=== PATIENT | female | born 1985 | race Caucasian/White ===

== ENCOUNTER 2017-04-01 22:21 | Emergency (ER) | payer BC, OTHER ==
[~2017-04-01] VITALS: Ht 165.1 cm; Wt 50.9 kg
[~2017-04-01 22:21] MED LIST: IBUP600T44 PO; PRENTAB26 PO
[2017-04-01 22:22] VITALS: Ht 165.1 cm; Wt 50.9 kg
[2017-04-01] MEDS ORDERED: SODIUM CHLORIDE 0.9% 500ML 500 ML IV STA (22:35)
--- NOTE | 2017-04-01 22:40 | EMERGENCY ROOM VISIT NOTE ---
History Report prepared by Scribe: Cinthya Rousseau Under the Supervision of: Dr. Shawn Mcrae M.D. First contact with patient: 22:26 Chief Complaint: CARDIAC ASSESSMENT Stated Complaint: PALPITATIONS,SYNCOPE History of Present Illness The patient is a 31 year old female who presents to the Emergency Room with complaints of needing a cardiac assessment. She reports she was driving home from a hockey game earlier this evening when she started to experience heart palpitations and weakness, stating she felt like she was "about to pass out". She also reports she felt like her heart was beating out of her chest during the episode. She states she feels a little better here in the ED, but still feels "shakey". She denies any loss of consciousness or drinking any alcohol today. She admits she didn't eat dinner this evening but states she is not hungry at the moment. She denies any abdominal pain. The patient admits to a history of tachycardia and GERD. She did take her daily dose of Propranolol this morning. Her Concrete Foreman is located in [place], [place]. She reports she recently underwent an echocardiogram that was unremarkable. The patient admits to some recent cold symptoms. She admits there is a chance she is . Her LMP was 3 weeks ago and normal. Source of History: patient Onset: CAR [employer]ARN [employer]OR[employer] Position: chest Timing: resolved Associated Symptoms: + weakness, No LOC, No abdominal pain Review of Systems See HPI for pertinent positives & negatives. A total of 10 systems reviewed and were otherwise negative. Past Medical & Surgical Medical Problems: (1) Delivery normal (2) GERD (gastroesophageal reflux disease) (3) Tachycardia Social History Smoking Status: Never Smoker Alcohol Use: occasionally Drug Use: none Marital Status: Housing Status: lives with family Occupation Status: employed Current/Historical Medications Scheduled Dicyclomine Hcl (Bentyl), 10 MG PO PRN Omeprazole (Prilosec), 40 MG PO DAILY Propranolol La (Inderal La), 120 MG PO DAILY Allergies Coded Allergies: No Known Allergies (Unverified , NONE, 06/06/08) Physical Exam Vital Signs Date Time Temp Pulse Resp B/P (MAP) Pulse Ox O2 Delivery O2 Flow Rate FiO2 04/01/17 23:57 80 20 117/60 94 Room Air 04/01/17 23:03 36.7 69 20 98/54 99 Room Air 04/01/17 22:53 100 Room Air 04/01/17 22:39 80 04/01/17 22:30 100 Room Air 04/01/17 22:22 79 22 124/65 99 Room Air Physical Exam GENERAL: Patient is a healthy-appearing well-nourished 31 year old female HEAD: Normocephalic atraumatic EYES: Ocular movements intact pupils equal and react to light OROPHARYNX mucous membranes are moist no exudates present no erythema or edema present NECK: Supple no nuchal rigidity CHEST: Good equal expansion LUNGS: Clear and equal to auscultation CARDIAC: Normal S1 and S2 ABDOMEN: Soft nontender no guarding BACK: No CVA tenderness EXTREMITIES: No pain upon palpation normal muscle strength in all groups no clubbing cyanosis or edema NEURO: Patient is following commands and answering questions appropriately. Alert and oriented x3 Cranial Nerves 2-12 grossly intact Medical Decision & Procedures ER Provider Diagnostic Interpretation: Radiology results as stated below per my review and radiologist interpretation: CHEST ONE VIEW PORTABLE CLINICAL HISTORY: Chest pain. Palpitations. COMPARISON STUDY: Chest radiograph June 06, 2008. FINDINGS: Lung volumes are normal. No pneumothorax or pleural effusion is present. Cardiomediastinal silhouette is normal. Pulmonary vascularity is normal. Slight asymmetric right lower lung opacity is likely artifactual. There is no definite consolidation. IMPRESSION: Slight asymmetric right lower lung opacity. Artifact is favored however pneumonia could appear similar. Electronically signed by: Coy Martinez M.D. 04/01/2017 10:59 PM Laboratory Results 04/01/17 22:40 Red Blood Count 3.99, Mean Corpuscular Volume 93.2, Mean Corpuscular Hemoglobin 32.1, Mean Corpuscular Hemoglobin Concent 34.4, Mean Platelet Volume 9.2, Neutrophils (%) (Auto) 56.5, Lymphocytes (%) (Auto) 33.7, Monocytes (%) (Auto) 5.7, Eosinophils (%) (Auto) 3.6, Basophils (%) (Auto) 0.4, Neutrophils # (Auto) 4.25, Lymphocytes # (Auto) 2.54, Monocytes # (Auto) 0.43, Eosinophils # (Auto) 0.27, Basophils # (Auto) 0.03 04/01/17 22:40 Test 04/01/17 22:40 White Blood Count 7.53 K/uL (4.8-10.8) Red Blood Count 3.99 M/uL (4.2-5.4) Hemoglobin 12.8 g/dL (12.0-16.0) Hematocrit 37.2 % (37-47) Mean Corpuscular Volume 93.2 fL (80-100) Mean Corpuscular Hemoglobin 32.1 pg (25-34) Mean Corpuscular Hemoglobin Concent 34.4 g/dl (32-36) Platelet Count 257 K/uL (130-400) Mean Platelet Volume 9.2 fL (7.4-10.4) Neutrophils (%) (Auto) 56.5 % Lymphocytes (%) (Auto) 33.7 % Monocytes (%) (Auto) 5.7 % Eosinophils (%) (Auto) 3.6 % Basophils (%) (Auto) 0.4 % Neutrophils # (Auto) 4.25 K/uL (1.4-6.5) Lymphocytes # (Auto) 2.54 K/uL (1.2-3.4) Monocytes # (Auto) 0.43 K/uL (0.11-0.59) Eosinophils # (Auto) 0.27 K/uL (0-0.5) Basophils # (Auto) 0.03 K/uL (0-0.2) RDW Standard Deviation 41.6 fL (36.4-46.3) RDW Coefficient of Variation 12.3 % (11.5-14.5) Immature Granulocyte % (Auto) 0.1 % Immature Granulocyte # (Auto) 0.01 K/uL (0.00-0.02) Anion Gap 7.0 mmol/L (3-11) Est Creatinine Clear Calc Drug Dose 98.3 ml/min Estimated GFR () 135.5 Estimated GFR (Non- 116.9 BUN/Creatinine Ratio 17.8 (10-20) Calcium Level 8.4 mg/dl (8.5-10.1) Total Bilirubin 0.5 mg/dl (0.2-1) Direct Bilirubin 0.1 mg/dl (0-0.2) Aspartate Amino Transf (AST/SGOT) 22 U/L (15-37) Alanine Aminotransferase (ALT/SGPT) 23 U/L (12-78) Alkaline Phosphatase 71 U/L (45-117) Total Creatine Kinase 79 U/L (26-192) Creatine Kinase MB 0.7 ng/ml (0.5-3.6) Creatine Kinase MB Ratio 0.9 (0-3.0) Troponin I < 0.015 ng/ml (0-0.045) Total Protein 8.1 gm/dl (6.4-8.2) Albumin 3.8 gm/dl (3.4-5.0) Lipase 156 U/L (73-393) Thyroid Stimulating Hormone (TSH) 5.410 uIu/ml (0.300-4.500) Human Chorionic Gonadotropin, Qual POS (NEG) Human Chorionic Gonadotropin, Quant 12 mIU/mL Labs reviewed by ED physician. Medications Administered Medications (Trade) Dose Ordered Sig/Inocencia Route Start Time Stop Time Status Last Admin Dose Admin Sodium Chloride 500 ml @ 999 mls/hr Q31M STAT IV 04/01/17 22:35 04/01/17 23:05 DC 04/01/17 23:01 999 MLS/HR ECG Indication: palpitations Rate (beats per minute): 80 Rhythm: normal sinus Findings: no acute ischemic change, no ectopy ED Course 2227: Past medical records reviewed. The patient was evaluated in room B10 . A complete history and physical examination was performed. 2235: NSS 500 ml @ 999 mls/hr IV. 2345: I reevaluated the patient. She is feeling well and resting comfortably. I discussed her results and discharge instructions and she verbalized complete understanding and agreement. Medical Decision Prior records/ancillary studies reviewed. Triage Nursing notes reviewed. The patient's history was concerning for chest pain. Differential diagnosis: Etiologies such as cardiac ischemia, aortic dissection, pulmonary embolism, pneumonia, pneumothorax, musculoskeletal, infections, pericarditis, myocarditis , esophageal rupture, gastrointestinal, as well as others were entertained. This is a 31-year-old female who presents emergency department complaining of palpitations and then a vasovagal episode. The patient has had multiple episodes like this in the past. I believe several things preceded this event including the fact that the patient did not eat well today. In addition she was in a warm hockey rink and walked out into a cold night. At this point the patient is asymptomatic. Her test here is positive however the beta hCG was found to only Be 12. I stressed a follow-up with her primary care physician as well as cardiology. The patient has a normal EKG here and was monitored for some time on the patient monitor. She was given normal saline bolus. She has a normal CK-MB troponin. In addition the patient is slightly anemic with hemoglobin 12.8. Medication Reconcilliation Current Medication List: was personally reviewed by me Blood Pressure Screening Patient's blood pressure: Normal blood pressure Blood pressure disposition: Did not require urgent referral Impression Primary Impression: Vasovagal episode Additional Impressions: Palpitations Scribe Attestation The scribe's documentation has been prepared under my direction and personally reviewed by me in its entirety. I confirm that the note above accurately reflects all work, treatment, procedures, and medical decision making performed by me. Departure Information Dispostion Home / Self-Care Referrals Promise Parker M.D. (PCP) Patient Instructions ED Palpitations, ED Syncope Vasovagal, My [facility] Additional Instructions Follow up with Cardiology Stop Prilosec, start zantac Recommend Multi-Vitamin with Folic acid You have been examined and treated today on an emergency basis only. This is not a substitute for, or an effort to provide, complete comprehensive medical care. It is impossible to recognize and treat all injuries or illnesses in a single emergency department visit. It is therefore important that you follow up closely with Dr Parker. Call as soon as possible for an appointment. Thank you for your time and consideration. I look forward to speaking with you again soon. Please don't hesitate to call us if you have any questions. Problem Qualifiers Additional Impressions: Weeks of gestation: less than 8 weeks Qualified Codes: Z3A.01 - Less than 8 weeks gestation of
[2017-04-01 22:53] VITALS: O2SAT 100
[2017-04-01 22:53] LABS: BASO % 0.4 %; BASO ABS # 0.03 K/uL (0-0.2); EOS % 3.6 %; EOS ABS # 0.27 K/uL (0-0.5); HEMATOCRIT 37.2 % (37-47); HEMOGLOBIN 12.8 g/dL (12.0-16.0); IG# 0.01 K/uL (0.00-0.02); LYMPH % 33.7 %; LYMPH ABS # 2.54 K/uL (1.2-3.4); MEAN CELL VOLUME 93.2 fL (80-100); MEAN CORPUSCULAR HEMOGLOBIN 32.1 pg (25-34); MEAN CORPUSCULAR HGB CONC 34.4 g/dl (32-36); MEAN PLATELET VOLUME 9.2 fL (7.4-10.4); MONO % 5.7 %; MONO ABS # 0.43 K/uL (0.11-0.59); NEUT % 56.5 %; NEUT ABS # 4.25 K/uL (1.4-6.5); PLATELET COUNT 257 K/uL (130-400); RED CELL DISTRIBUTION WIDTH CV 12.3 % (11.5-14.5); RED CELL DISTRIBUTION WIDTH SD 41.6 fL (36.4-46.3); WHITE BLOOD COUNT 7.53 K/uL (4.8-10.8)
[2017-04-01] MEDS ORDERED: INDSR/120 PO (23:00)
[2017-04-01] MEDS ORDERED: DICY10CA55 PO (23:00)
[2017-04-01] MEDS ORDERED: OMEP40CA41 PO (23:00)
--- NOTE | 2017-04-01 23:00 | DIAGNOSTIC IMAGING REPORT ---
CHEST ONE VIEW PORTABLE CLINICAL HISTORY: Chest pain. Palpitations. COMPARISON STUDY: Chest radiograph June 06, 2008. FINDINGS: Lung volumes are normal. No pneumothorax or pleural effusion is present. Cardiomediastinal silhouette is normal. Pulmonary vascularity is normal. Slight asymmetric right lower lung opacity is likely artifactual. There is no definite consolidation. IMPRESSION: Slight asymmetric right lower lung opacity. Artifact is favored however pneumonia could appear similar. Electronically signed by: Coy Martinez M.D. 04/01/2017 10:59 PM Dictated Date/Time: 04/01/2017 10:58 PM
[2017-04-01 23:03] VITALS: TEMP 36.7
[2017-04-01 23:14] LABS: ALBUMIN 3.8 gm/dl (3.4-5.0); ALT/SGPT 23 U/L (12-78); BLOOD UREA NITROGEN 12 mg/dl (7-18); CALCIUM 8.4 mg/dl (8.5-10.1); CARBON DIOXIDE 25 mmol/L (21-32); CREATININE 0.66 mg/dl (0.60-1.20); GLUCOSE 108 mg/dl (70-99); LIPASE 156 U/L (73-393); POTASSIUM 3.9 mmol/L (3.5-5.1); SODIUM 137 mmol/L (136-145)
[2017-04-01 23:27] LABS: ALKALINE PHOSPHATASE 71 U/L (45-117); AST/SGOT 22 U/L (15-37); CKMB 0.7 ng/ml (0.5-3.6); TOTAL PROTEIN 8.1 gm/dl (6.4-8.2)
[2017-04-01 23:57] VITALS: BP 117/60; PULSE 80; O2SAT 94
== END 2017-04-02 00:03 | disposition home or self-care (01) ==
LOC: C.EDB 22:22
DX: R55 Syncope and collapse (principal); R00.2 Palpitations; Z33.1 Pregnant state, incidental; Z3A.01 Less than 8 weeks gestation of pregnancy; K21.9 Gastro-esophageal reflux disease without esophagitis; Z79.899 Other long term (current) drug therapy

== ENCOUNTER 2017-04-11 18:49 | Observation (INO) | payer OTHER ==
[~2017-04-11] VITALS: Ht 165.1 cm; Wt 50.3 kg
[~2017-04-11 18:49] MED LIST changes: +DICY10CA55 PO; -IBUP600T44 PO; +INDSR/120 PO; +OMEP40CA41 PO; -PRENTAB26 PO
[2017-04-11] MEDS ORDERED: MoRPHine SULFATE 4 MG/ML 1 ML CARP\\VIAL IV STA ×2 (19:22→21:15)
[2017-04-11] MEDS ORDERED: SODIUM CHLORIDE 0.9% 1000ML 1,000 ML IV STA (19:22)
[2017-04-11] MEDS ORDERED: ONDANSETRON INJ 2 MG/ML 2 ML VIAL IV STA (19:22)
[2017-04-11 19:37] LABS: BASO % 0.2 %; BASO ABS # 0.02 K/uL (0-0.2); EOS % 1.2 %; EOS ABS # 0.11 K/uL (0-0.5); HEMATOCRIT 33.9 % (37-47); HEMOGLOBIN 11.6 g/dL (12.0-16.0); IG# 0.01 K/uL (0.00-0.02); LYMPH % 17.6 %; LYMPH ABS # 1.63 K/uL (1.2-3.4); MEAN CELL VOLUME 92.6 fL (80-100); MEAN CORPUSCULAR HEMOGLOBIN 31.7 pg (25-34); MEAN CORPUSCULAR HGB CONC 34.2 g/dl (32-36); MEAN PLATELET VOLUME 9.1 fL (7.4-10.4); MONO % 4.1 %; MONO ABS # 0.38 K/uL (0.11-0.59); NEUT % 76.8 %; NEUT ABS # 7.12 K/uL (1.4-6.5); PLATELET COUNT 234 K/uL (130-400); RED CELL DISTRIBUTION WIDTH CV 12.5 % (11.5-14.5); RED CELL DISTRIBUTION WIDTH SD 42.3 fL (36.4-46.3); WHITE BLOOD COUNT 9.27 K/uL (4.8-10.8)
[2017-04-11 19:48] LABS: PTT PATIENT 24.9 SECONDS (21.0-31.0)
[2017-04-11] MEDS ORDERED: PRENTAB26 PO (19:59)
[2017-04-11 20:02] LABS: ALBUMIN 4.1 gm/dl (3.4-5.0); CALCIUM 8.6 mg/dl (8.5-10.1); CREATININE 0.55 mg/dl (0.60-1.20); POTASSIUM 3.3 mmol/L (3.5-5.1)
[2017-04-11 20:05] LABS: TOTAL PROTEIN 7.7 gm/dl (6.4-8.2)
--- NOTE | 2017-04-11 20:50 | DIAGNOSTIC IMAGING REPORT ---
EXAMINATION: RENAL ULTRASOUND CLINICAL HISTORY: LEFT FLANK PAIN COMPARISON STUDY: CT scan performed December 2014 FINDINGS: The right kidney measures 11 cm. The left kidney measures 10.6 cm. There is no evidence of hydronephrosis. There are no renal masses. The bladder was well-distended. Neither ureteral jet was visualized. IMPRESSION : No renal masses identified. No evidence of hydronephrosis. Electronically signed by: Florencio Alvarez M.D. 04/11/2017 8:48 PM Dictated Date/Time: 04/11/2017 8:47 PM
--- NOTE | 2017-04-11 20:55 | DIAGNOSTIC IMAGING REPORT ---
ECTOPIC ULTRASOUND (transabdominal and endovaginal scanning) CLINICAL HISTORY: . Left lower quadrant abdominal pain COMPARISON STUDY: No previous studies for comparison. FINDINGS: The patient was scanned in both the transabdominal and endovaginal fashion. The uterus measured 7.9 x 3.7 x 5.4 cm. 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 No intrauterine gestational sac was visualized. The right ovary was nonvisualized. The left ovary measured 29 x 13 x 18 mm. There is a 14 mm exophytic nodule, likely representing a complex cyst. There is a small amount of free pelvic fluid. IMPRESSION: 1. No intrauterine gestation sac was visualized. 2. Diagnostic considerations therefore include: normal early intrauterine gestation, ectopic , or spontaneous . 3. Correlation with follow-up ultrasonography and serial quantitative beta hCGs is recommended. Electronically signed by: Florencio Alvarez M.D. 04/11/2017 8:54 PM Dictated Date/Time: 04/11/2017 8:50 PM
[2017-04-11] MEDS: LACTATED RINGER'S 1000ML 1,000 ML IV SCH (22:30)
--- NOTE | 2017-04-11 22:31 | EMERGENCY ROOM VISIT NOTE ---
ED Visit Note First contact with patient: 19:06 CHIEF COMPLAINT: Pelvic and left lower quadrant/back pain since this afternoon HISTORY OF PRESENT ILLNESS: Patient is a roughly 5 weeks 31-year -old white female with last normal menstrual period 03/06/2017, who presents the emergency department for evaluation of pelvic pain. Patient reports she is set up to have her first SITE PLANNER visit with Vamsi tomorrow. The patient reports that she found out she was here in the emergency department a couple of weeks ago after she had a vasovagal episode. A serum test performed at that time was positive, Quant was only 12. Patient relates that she has been feeling well and was in her otherwise usual state of health until yesterday. She noted some very minor pelvic cramping yesterday but states that it was tolerable. She states that her symptoms markedly worsened today around 11:30 in the afternoon. She reported progressively worsening pelvic pressure, which then turned into pain. It was originally suprapubic, and very low in the pelvis, slightly towards the left, and has now begun to radiate to the left low back. 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 She reports feeling nauseous and having the chills, she does report the symptoms, with increased waves of pain. She delivered temperature when she got home from work and reports it was 99.6F. She did take some Tylenol and tried to lay down to see if this would help with her symptoms, but it did not. She denies any vaginal bleeding or spotting, no leakage of fluid. Her 2 prior pregnancies were unremarkable other than a delivery. She rates her pain a 9/10. She does have a history of kidney stones, and states that this feels slightly similar, the pelvic pain she is experiencing is unlike her prior kidney stones. REVIEW OF SYSTEMS: Review of systems as per HPI. All other systems reviewed were negative. 10 systems reviewed. PMH: Electronic medical records are reviewed and summarized as above/below. See Problem List. SOCIAL HISTORY: Patient lives at home with her and children. Employed. Nonsmoker. PHYSICAL EXAM: Vital Signs: Reviewed Nurse's notes. CONSTITUTIONAL: Patient is a tearful, uncomfortable appearing 31-year-old white female who is awake and alert and in moderate distress due to her stated complaint. NECK: No bruits auscultated. Supple without lymphadenopathy. No thyromegaly. No meningeal signs. Full active range of motion without discomfort. CARDIOVASCULAR: Regular rate and rhythm, with normal S1 and S2, no murmur or gallop or rub is heard. No carotid bruits auscultated. No JVD. Peripheral pulses easily palpable. RESPIRATORY: Breath sounds equal and clear to auscultation without wheezes, rales, or rhonchi heard. Full and equal chest expansion without accessory muscle use or retractions. ABDOMEN: Bowel sounds are present. Well-healed surgical scars are noted. Abdomen is soft, scaphoid, mildly tender to percussion and palpation in the suprapubic and left lower quadrant, without guarding, rebound or rigidity. There is no pain in the right lower quadrant over McBurney's point. INTEGUMENTARY: No lesions or rash, normal skin turgor. LYMPH: No lymphadenopathy. EMERGENCY DEPARTMENT COURSE: The patient was seen and assessed as above. Her old records are reviewed. Her blood type is confirmed in the EMR as a positive. IV lock was initiated. Laboratory studies were collected including CBC with differential, coags, CMP and quantitative hCG. Urine dip had noted trace occult blood, therefore in addition to pelvic ultrasound, retroperitoneal ultrasound was also ordered. After discussing risks, benefits and alternatives with the patient, she reported being in very significant discomfort, and did desire something for pain. She was given morphine 4 mg and Zofran 4 mg IV. Laboratory studies noted a normal white count at 9200, patient is anemic, H&H is 11.6 and 33.9. Platelets and coags are normal. Potassium 3.3, otherwise electrolytes are normal. Renal function is within normal limits. LFTs are not elevated. HCG is 1386. Urine microscopy notes trace ketones only. Patient's renal ultrasound was unremarkable. There is no evidence for hydronephrosis, no renal masses. No shadowing calculi. Ureteral jets were not identified. Pelvic ultrasound noted a bicornuate uterus. No intrauterine gestational sac was visualized. The right ovary was not visualized due to overlying bowel. Left ovary was visualized and measured 29 x 13 x 18 mm with a 14 mm exophytic nodule likely representing a complex fixed. There was a small amount of free pelvic fluid. Differentials considered included normal early intrauterine gestation, ectopic or spontaneous . All laboratory and diagnostic imaging studies were reviewed with the patient and her . She had increased pain after she returned from ultrasound and was given additional morphine 4 mg IV. I was able to discuss the patient with Vamsi Norman SITE PLANNER application security developer, who was in house, and came to the emergency department to assess the patient. After his evaluation of the patient, he has elected to admit/observe her in the hospital for pain management on further care and evaluation. Differential diagnoses entertained include early intrauterine , ectopic , spontaneous versus threatened AB, septic , ovarian cyst, ovarian torsion, constipation, shingles, renal colic, UTI, pyelonephritis , musculoskeletal pain, amongst others. Medication reconciliation: I attest that I have personally reviewed the patient' s current medication list. Blood pressure screening : Patient was found to have normal blood pressure on screening and does not require follow-up. Problem List Medical Problems: (1) Delivery normal Status: Resolved (2) GERD (gastroesophageal reflux disease) Status: Chronic (3) Palpitations Status: Resolved (4) Status: Resolved (5) Tachycardia Status: Chronic (6) Vasovagal episode Status: Resolved Surgical Problems: (1) History of section Status: Resolved (2) History of cholecystectomy Status: Resolved (3) History of tonsillectomy Status: Resolved Current/Historical Medications Scheduled Multivit/Min/Iron/Fol Ac/Pren ( Vitamin), 2 TAB PO DAILY Allergies Coded Allergies: No Known Allergies (Unverified , NONE, 06/06/08) Vital Signs Date Time Temp Pulse Resp B/P (MAP) Pulse Ox O2 Delivery O2 Flow Rate FiO2 04/11/17 21:07 102 16 118/78 99 Room Air 04/11/17 18:54 36.8 110 16 115/76 99 Room Air Laboratory Results 04/11/17 19:13 Red Blood Count 3.66, Mean Corpuscular Volume 92.6, Mean Corpuscular Hemoglobin 31.7, Mean Corpuscular Hemoglobin Concent 34.2, Mean Platelet Volume 9.1, Neutrophils (%) (Auto) 76.8, Lymphocytes (%) (Auto) 17.6, Monocytes (%) (Auto) 4.1, Eosinophils (%) (Auto) 1.2, Basophils (%) (Auto) 0.2, Neutrophils # (Auto) 7.12, Lymphocytes # (Auto) 1.63, Monocytes # (Auto) 0.38, Eosinophils # (Auto) 0.11, Basophils # (Auto) 0.02 04/11/17 19:13 Test 04/11/17 19:13 04/11/17 19:40 White Blood Count 9.27 K/uL (4.8-10.8) Red Blood Count 3.66 M/uL (4.2-5.4) Hemoglobin 11.6 g/dL (12.0-16.0) Hematocrit 33.9 % (37-47) Mean Corpuscular Volume 92.6 fL (80-100) Mean Corpuscular Hemoglobin 31.7 pg (25-34) Mean Corpuscular Hemoglobin Concent 34.2 g/dl (32-36) Platelet Count 234 K/uL (130-400) Mean Platelet Volume 9.1 fL (7.4-10.4) Neutrophils (%) (Auto) 76.8 % Lymphocytes (%) (Auto) 17.6 % Monocytes (%) (Auto) 4.1 % Eosinophils (%) (Auto) 1.2 % Basophils (%) (Auto) 0.2 % Neutrophils # (Auto) 7.12 K/uL (1.4-6.5) Lymphocytes # (Auto) 1.63 K/uL (1.2-3.4) Monocytes # (Auto) 0.38 K/uL (0.11-0.59) Eosinophils # (Auto) 0.11 K/uL (0-0.5) Basophils # (Auto) 0.02 K/uL (0-0.2) RDW Standard Deviation 42.3 fL (36.4-46.3) RDW Coefficient of Variation 12.5 % (11.5-14.5) Immature Granulocyte % (Auto) 0.1 % Immature Granulocyte # (Auto) 0.01 K/uL (0.00-0.02) Prothrombin Time 10.3 SECONDS (9.0-12.0) Prothromb Time International Ratio 1.0 (0.9-1.1) Activated Partial Thromboplast Time 24.9 SECONDS (21.0-31.0) Partial Thromboplastin Ratio 1.0 Anion Gap 6.0 mmol/L (3-11) Est Creatinine Clear Calc Drug Dose 116.6 ml/min Estimated GFR () 143.8 Estimated GFR (Non- 124.1 BUN/Creatinine Ratio 17.6 (10-20) Calcium Level 8.6 mg/dl (8.5-10.1) Total Bilirubin 0.4 mg/dl (0.2-1) Aspartate Amino Transf (AST/SGOT) 14 U/L (15-37) Alanine Aminotransferase (ALT/SGPT) 23 U/L (12-78) Alkaline Phosphatase 70 U/L (45-117) Total Protein 7.7 gm/dl (6.4-8.2) Albumin 4.1 gm/dl (3.4-5.0) Globulin 3.6 gm/dl (2.5-4.0) Albumin/Globulin Ratio 1.1 (0.9-2) Human Chorionic Gonadotropin, Quant 1386 mIU/mL Urine Color YELLOW Urine Appearance CLEAR (CLEAR) Urine pH 5.0 (4.5-7.5) Urine Specific [place] 1.026 (1.000-1.030) Urine Protein NEG (NEG) Urine Glucose (UA) NEG (NEG) Urine Ketones TRACE (NEG) Urine Occult Blood NEG (NEG) Urine Nitrite NEG (NEG) Urine Bilirubin NEG (NEG) Urine Urobilinogen NEG (NEG) Urine Leukocyte Esterase NEG (NEG) Medications Administered Medications (Trade) Dose Ordered Sig/Inocencia Route Start Time Stop Time Status Last Admin Dose Admin Sodium Chloride 1,000 ml @ 999 mls/hr Q1H1M STAT IV 04/11/17 19:22 04/11/17 20:22 DC 04/11/17 19:37 999 MLS/HR Morphine Sulfate (MoRPHine SULFATE INJ) 4 mg NOW STAT IV 04/11/17 19:22 04/11/17 19:28 DC 04/11/17 19:37 4 MG Ondansetron HCl (Zofran Inj) 4 mg NOW STAT IV 04/11/17 19:22 04/11/17 19:28 DC 04/11/17 19:36 4 MG Morphine Sulfate (MoRPHine SULFATE INJ) 4 mg NOW STAT IV 04/11/17 21:15 04/11/17 21:16 DC 04/11/17 21:33 4 MG Departure Information Impression Primary Impression: Pelvic pain affecting in first trimester, antepartum Dispostion Admitted as an inpatient Referrals Promise Parker M.D. (PCP) Patient Instructions My [facility]
[2017-04-12] MEDS ORDERED: HYDROmorphone INJ 1 MG/ML SYR IV PRN
[2017-04-12] MEDS ORDERED: OXYCODONE/ACETAMINOPHEN 5-325 TAB PO PRN
[2017-04-12 00:05] VITALS: BP 104/65; PULSE 85; TEMP 36.8; O2SAT 100; Ht 165.1 cm; Wt 50.3 kg
[2017-04-12] MEDS ORDERED: IV FLUIDS COMPLETED PRN ×2 (00:30→00:45)
[2017-04-12 04:00] VITALS: BP 96/61; PULSE 90; TEMP 36.8; O2SAT 97
[2017-04-12 06:43] LABS: BASO % 0.3 %; BASO ABS # 0.02 K/uL (0-0.2); EOS % 1.8 %; EOS ABS # 0.11 K/uL (0-0.5); HEMATOCRIT 28.4 % (37-47); HEMOGLOBIN 9.8 g/dL (12.0-16.0); IG# 0.01 K/uL (0.00-0.02); LYMPH % 33.7 %; LYMPH ABS # 2.01 K/uL (1.2-3.4); MEAN CELL VOLUME 92.2 fL (80-100); MEAN CORPUSCULAR HEMOGLOBIN 31.8 pg (25-34); MEAN CORPUSCULAR HGB CONC 34.5 g/dl (32-36); MEAN PLATELET VOLUME 8.8 fL (7.4-10.4); MONO % 6.5 %; MONO ABS # 0.39 K/uL (0.11-0.59); NEUT % 57.5 %; NEUT ABS # 3.42 K/uL (1.4-6.5); PLATELET COUNT 176 K/uL (130-400); RED CELL DISTRIBUTION WIDTH CV 12.6 % (11.5-14.5); RED CELL DISTRIBUTION WIDTH SD 42.4 fL (36.4-46.3); WHITE BLOOD COUNT 5.96 K/uL (4.8-10.8)
[2017-04-12] MEDS: LACTATED RINGER'S 1000ML 1,000 ML IV SCH (07:44)
[2017-04-12 07:45] VITALS: BP 99/65; PULSE 86; TEMP 37.1; O2SAT 99
--- NOTE | 2017-04-12 08:11 | HISTORY & PHYSICAL EXAMINATION ---
DATE OF ADMISSION: 04/11/2017 The patient is a 31-year-old G3, P2, who is 5 weeks . The patient is scheduled for her new OB appointment at [facility] tomorrow, 04/12/2017. Her last menstrual period was 03/06/____. She had done quantitative hCG at the beginning of the , that was 12. She has been doing well until today at 11:30 this morning when she began to experience some pelvic pain. Pain got worse and was radiating down her left pelvis to the left leg. 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 She took some Tylenol. Pain continued to get worse. She does have a history of kidney stones and thought this pain was from kidney stones. She presented to the Emergency Room today where she was seen and evaluated. Renal scan is unremarkable. Pelvic ultrasound showed no IUP. There is, however, left ovary that measures 29 x 13 x 18 mm. There is a 14 mm exophytic nodule which likely represents a complex cyst. There is small amount of fluid in the pelvis. The patient also has a bicornuate uterus and beta hCG is in the 1300s. The patient continues to rank her pain 9/10. She has received several narcotics in the ER and continues to have pain. REVIEW OF SYSTEMS: Negative except as dictated in the HPI. PAST MEDICAL HISTORY: History of tachycardia, the patient was on propranolol prior to . She was told by her jacquard fixer to stop the propranolol once she found out she was . PAST SURGICAL HISTORY: History of section. SOCIAL HISTORY: The patient is , lives with her spouse and children. Denies tobacco, drug or alcohol use. PHYSICAL EXAMINATION: VITAL SIGNS: Temperature 36.8, pulse 102, respirations 16, blood pressure 118/78. HEART: S1, S2, regular rhythm and rate. LUNGS: Clear to auscultation bilaterally. ABDOMEN: There is no guarding, no rebound. Positive bowel sounds. There is slight tenderness in the left lower abdomen. PELVIC: No blood in the vaginal vault. Cervix appears grossly normal. There is fullness in the left adnexa. Uterus appears grossly normal, about 7-week size uterus. EXTREMITIES: No cyanosis, clubbing or edema. ASSESSMENT AND PLAN: 1. . HCG is 1300. 2. Left lower pelvic pain. Ultrasound shows no intrauterine . Left cyst is seen. There is fluid in the pelvis. There is obviously concern for ectopic . I have discussed the above finding with the patient, the patient is a nurse, and we have discussed the options including expected management and repeat hCG in 48 hours since her initial hCG is only 1300. The patient's pain is quite significant. Decision, therefore, was made to admit the patient for pain control and observation. The patient understands that at this point we could either do expected management and repeat hCG titer or do diagnostic laparoscopy. She is interested in keeping the and does not at this moment want any surgical intervention or treatment of her as an ectopic since we do not have a definitive diagnosis at this point. We have agreed, therefore, on keeping this patient overnight and controlling her pain and follow her with labs. Indeed this is an ectopic . Her hemoglobin and CBC are stable. The patient has agreed to observation and serial hCG and H&H followup.
[2017-04-12] MEDS ORDERED: NURSING VERBAL MED ORDER ONE (09:00)
[2017-04-12] MEDS ORDERED: IBUPROFEN 600 MG TAB PO SCH (09:00)
--- NOTE | 2017-04-12 09:14 | Discharge Instructions ---
Discharge Instructions Date of Service Apr 12, 2017. 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 Instructions / Follow-Up Instructions / Follow-Up ACTIVITY RECOMMENDATIONS: See Labor Sheet. SPECIAL CARE INSTRUCTIONS: Call Doctor if: * Severe abdominal pain. * Bleeding * Fever >100.4 degrees F * Pain not relieved by routine measures or pain medication ordered. FOLLOW UP VISIT: Follow-up Visit with:[facility] [place] When:Tuesday04/13/2017 Current Hospital Diet Patient's current hospital diet: Regular Diet Discharge Diet Recommended Diet: Regular Diet Pending Studies Studies pending at discharge: no Medical Emergencies . Who to Call and When: Medical Emergencies: If at any time you feel your situation is an emergency, please call 911 immediately. . Non-Emergent Contact Non-Emergency issues call your: Material Expeditor . . "Provider Documentation" section prepared by Alan Cabrera. . VTE Core Measure Inpt VTE Proph given/why not?: Treatment not indicated
--- NOTE | 2017-04-12 09:19 | Progress Note ---
Progress Note Date of Service Apr 12, 2017. Progress Note Patient seen this morning. Received sign out from Dr. Wilhelm. Patient states she is doing much better this morning. Not needing anything for pain at this time. Discussed plan to have her seen at the office tomorrow for a repeat HCG and doc visit. Ectopic precautions given. Will call with any concerns. D/c today.
[2017-04-12] MEDS ORDERED: IBUPROFEN 600 MG TAB PO PRN (09:30)
[2017-04-12 10:00] VITALS: BP 99/65; PULSE 86; TEMP 37.1; O2SAT 99
== END 2017-04-12 10:58 | disposition home or self-care (01) ==
LOC: C.EDB 18:52 → C.MS4N 22:30 → ENRESERV 22:46
PROVIDERS: ADMIT Obstetrics & Gynecology; ATTEND Obstetrics & Gynecology
DX: O26.891 Other specified pregnancy related conditions, first trimester (principal); R10.2 Pelvic and perineal pain; O99.411 Diseases of the circulatory system complicating pregnancy, first trimester; R00.0 Tachycardia, unspecified; Z3A.01 Less than 8 weeks gestation of pregnancy

== ENCOUNTER 2017-04-15 15:09 | Emergency (ER) | payer OTHER ==
[~2017-04-15] VITALS: Ht 165.1 cm; Wt 50.2 kg
[2017-04-15 15:16] VITALS: Ht 165.1 cm; Wt 50.2 kg
--- NOTE | 2017-04-15 15:37 | EMERGENCY ROOM VISIT NOTE ---
History Report prepared by Ijeoma: Linwood Renteria Under the Supervision of: Dr. Aquilino Quan M.D. First contact with patient: 15:20 Chief Complaint: OTHER COMPLAINT Stated Complaint: STAT HCQ METHOTREXATE SHOT SENT BY [facility] A History of Present Illness The patient is a 31 year old female who presents to the Emergency Room for evaluation of ectopic . Patient currently 5.5 wks by dates. She has concern for ectopic given US at OB today revealing 3.5x2.5 cm adnexal mass separate from Ovary. Has had several positive HCGs. Sent over from OB clinic for evaluation of ectopic . Notes initially pain quite severe 2 days ago which has resolved. Denies much other than just some slight lower left pelvic discomfort. Denies fevers, chills, nausea, vomiting, rashes, vaginal bleeding/discharge, leg swelling, nor other symptoms. No history of ectopic. No medications taken for this. First with vaginal deliver, second was . Source of History: patient Onset: 3 days ago Position: abdomen Timing: constant Associated Symptoms: No fevers, No vomiting, No rash Note: Patient denies lower extremity swelling. Review of Systems See HPI for pertinent positives & negatives. A total of 10 systems reviewed and were otherwise negative. 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 (3) GERD (gastroesophageal reflux disease) (4) Palpitations (5) (6) (7) Tachycardia (8) Vasovagal episode Surgical Problems: (1) History of section (2) History of cholecystectomy (3) History of tonsillectomy Social History Smoking Status: Never Smoker Alcohol Use: occasionally Drug Use: none Marital Status: Housing Status: lives with family Occupation Status: employed Current/Historical Medications Scheduled Multivit/Min/Iron/Fol Ac/Pren ( Vitamin), 2 TAB PO DAILY Allergies Coded Allergies: No Known Allergies (Unverified , NONE, 06/06/08) Physical Exam Vital Signs Date Time Temp Pulse Resp B/P (MAP) Pulse Ox O2 Delivery O2 Flow Rate FiO2 04/15/17 17:52 36.9 87 20 103/71 100 04/15/17 17:43 87 20 103/71 100 Room Air 04/15/17 15:16 36.9 102 20 112/79 99 Room Air Physical Exam GENERAL: Patient is well appearing and in no acute distress. HEENT: No acute trauma, normocephalic atraumatic, mucous membranes moist, no nasal congestion, no scleral icterus. NECK: No stridor, no adenopathy, no meningismus, trachea is midline. LUNGS: No dyspnea. Clear to auscultation and equal bilaterally. No wheeze, no rhonchi. HEART: Regular rate and rhythm. No murmurs, rubs, gallops appreciated. ABDOMEN: Soft, nontender, bowel sounds positive, no masses appreciated, no peritonitis. PELVIS: Mild left lower pelvis tenderness to palpation. BACK: No midline tenderness, no CVA tenderness EXTREMITIES: Normal motion all extremities, no cyanosis, no edema. NEUROLOGIC: Alert and oriented, no acute motor or sensory deficits, no focal weakness, cranial nerves grossly intact. SKIN: No rash, no jaundice, no diaphoresis. Medical Decision & Procedures Laboratory Results 04/15/17 15:40 Red Blood Count 3.51, Mean Corpuscular Volume 93.4, Mean Corpuscular Hemoglobin 32.5, Mean Corpuscular Hemoglobin Concent 34.8, Mean Platelet Volume 9.3, Neutrophils (%) (Auto) 63.8, Lymphocytes (%) (Auto) 25.4, Monocytes (%) (Auto) 7.3, Eosinophils (%) (Auto) 2.6, Basophils (%) (Auto) 0.7, Neutrophils # (Auto) 3.91, Lymphocytes # (Auto) 1.56, Monocytes # (Auto) 0.45, Eosinophils # (Auto) 0.16, Basophils # (Auto) 0.04 04/15/17 15:40 Test 04/15/17 15:40 White Blood Count 6.13 K/uL (4.8-10.8) Red Blood Count 3.51 M/uL (4.2-5.4) Hemoglobin 11.4 g/dL (12.0-16.0) Hematocrit 32.8 % (37-47) Mean Corpuscular Volume 93.4 fL (80-100) Mean Corpuscular Hemoglobin 32.5 pg (25-34) Mean Corpuscular Hemoglobin Concent 34.8 g/dl (32-36) Platelet Count 240 K/uL (130-400) Mean Platelet Volume 9.3 fL (7.4-10.4) Neutrophils (%) (Auto) 63.8 % Lymphocytes (%) (Auto) 25.4 % Monocytes (%) (Auto) 7.3 % Eosinophils (%) (Auto) 2.6 % Basophils (%) (Auto) 0.7 % Neutrophils # (Auto) 3.91 K/uL (1.4-6.5) Lymphocytes # (Auto) 1.56 K/uL (1.2-3.4) Monocytes # (Auto) 0.45 K/uL (0.11-0.59) Eosinophils # (Auto) 0.16 K/uL (0-0.5) Basophils # (Auto) 0.04 K/uL (0-0.2) RDW Standard Deviation 42.8 fL (36.4-46.3) RDW Coefficient of Variation 12.7 % (11.5-14.5) Immature Granulocyte % (Auto) 0.2 % Immature Granulocyte # (Auto) 0.01 K/uL (0.00-0.02) Anion Gap 8.0 mmol/L (3-11) Est Creatinine Clear Calc Drug Dose 108.5 ml/min Estimated GFR () 140.6 Estimated GFR (Non- 121.3 BUN/Creatinine Ratio 10.8 (10-20) Calcium Level 8.8 mg/dl (8.5-10.1) Total Bilirubin 0.4 mg/dl (0.2-1) Aspartate Amino Transf (AST/SGOT) 17 U/L (15-37) Alanine Aminotransferase (ALT/SGPT) 22 U/L (12-78) Alkaline Phosphatase 68 U/L (45-117) Total Protein 7.6 gm/dl (6.4-8.2) Albumin 3.8 gm/dl (3.4-5.0) Globulin 3.8 gm/dl (2.5-4.0) Albumin/Globulin Ratio 1.0 (0.9-2) Human Chorionic Gonadotropin, Quant 193 mIU/mL Laboratory results as reviewed by me. Medications Administered Medications (Trade) Dose Ordered Sig/Inocencia Route Start Time Stop Time Status Last Admin Dose Admin Potassium Chloride (Klor-Con M10) 20 meq STK-MED ONCE .ROUTE 04/15/17 17:47 04/15/17 17:48 DC 04/15/17 17:49 20 MEQ ED Course 1525: The patient was evaluated in room B10. A complete history and physical exam was performed. 1533: I spoke with Dr. Toledo and he will call back once labs are returned. 1547: I checked on the patient and she is comfortable. 1647: I discussed the patient's labs with Dr. Toledo. 1650: I spoke with Dr. Toledo and requested he touch base with the patient. 1657: I checked on the patient and she is doing well. 1710: Dr. Toledo evaluated the patient and she will be discharged. She will be having repeat labs at [facility] on Tuesday. Medical Decision Pleasant 31 yr old female with 3rd at ~ 5.5 wks arrives from OB clinic due to US revealing left adnexal mass, no IUP, and recent positive hcg. Patient in no distress and just mild left lower pelvic TTP. Hgb stable, hcg trending significantly down and a+ blood type. Reviewed with Dr Moss who evaluated patient and advised DC and he chávez set up repeat HCG for Tuesday as outpatient. Patient with some low K which I suspect is due to all the recent IV fluids and poor oral intake. Given 20meq and advised good oral intake. Reviewed at length symptoms requiring emergent return. Patient and comfortable with this plan. Medication Reconcilliation Current Medication List: was personally reviewed by me Blood Pressure Screening Patient's blood pressure: Normal blood pressure Blood pressure disposition: Did not require urgent referral Consults Time Called: 1530 Consulting Physician: Dr. Toledo Returned Call: [address] Toledo and he will call back once labs are returned. Additional Consults: Time Called: 1640 Consulted Physician: Dr. Toledo Returned Call: 1646 Additional Comments: Discussed the patient's case and her labs. The patient will be evaluated for further treatment and disposition. Time Called: 1649 Consulted Physician: Dr. Toledo Returned Call: 1650 Additional Comments: I spoke with Dr. Toledo and requested he touch base with the patient. Impression Primary Impression: Adnexal mass Additional Impressions: Elevated serum hCG Hypokalemia Scribe Attestation The scribe's documentation has been prepared under my direction and personally reviewed by me in its entirety. I confirm that the note above accurately reflects all work, treatment, procedures, and medical decision making performed by me. Departure Information Dispostion Home / Self-Care Referrals Promise Parker M.D. (PCP) Patient Instructions [facility] Additional Instructions Rest and avoid exertion over the next 72 hours. Keep well hydrated and eat a well balanced diet. Discuss your low Potassium and anemia with your primary provider. Return to Lab on Tuesday for Repeat BHCG and follow up with OB on Tuesday to discuss how you are doing. Return immediately or call 911 if severe pain, heavy vaginal bleeding, passing out, diffuse abdominal pain, fevers, or other concerning symptoms. We are always here to help. Problem Qualifiers
[2017-04-15 16:12] LABS: BASO % 0.7 %; BASO ABS # 0.04 K/uL (0-0.2); EOS % 2.6 %; EOS ABS # 0.16 K/uL (0-0.5); HEMATOCRIT 32.8 % (37-47); HEMOGLOBIN 11.4 g/dL (12.0-16.0); IG# 0.01 K/uL (0.00-0.02); LYMPH % 25.4 %; LYMPH ABS # 1.56 K/uL (1.2-3.4); MEAN CELL VOLUME 93.4 fL (80-100); MEAN CORPUSCULAR HEMOGLOBIN 32.5 pg (25-34); MEAN CORPUSCULAR HGB CONC 34.8 g/dl (32-36); MEAN PLATELET VOLUME 9.3 fL (7.4-10.4); MONO % 7.3 %; MONO ABS # 0.45 K/uL (0.11-0.59); NEUT % 63.8 %; NEUT ABS # 3.91 K/uL (1.4-6.5); PLATELET COUNT 240 K/uL (130-400); RED CELL DISTRIBUTION WIDTH CV 12.7 % (11.5-14.5); RED CELL DISTRIBUTION WIDTH SD 42.8 fL (36.4-46.3); WHITE BLOOD COUNT 6.13 K/uL (4.8-10.8)
[2017-04-15 16:28] LABS: ALBUMIN 3.8 gm/dl (3.4-5.0); CALCIUM 8.8 mg/dl (8.5-10.1); CREATININE 0.59 mg/dl (0.60-1.20)
[2017-04-15 16:31] LABS: TOTAL PROTEIN 7.6 gm/dl (6.4-8.2)
--- NOTE | 2017-04-15 17:37 | Medical Consult ---
Consultation Date of Consultation: Apr 15, 2017. Attending Physician: History of Present Illness 31 W F P2002 seen in office today for follow up for follow up for dropping hcg levels and left sided pain. She presents to ER from office for hcg levels. She is asymptomatic without pain or bleeding or any peritoneal signs. she denies lightheadedness or any loss of conscoiusness. Ultrasound done earlier in the week and at the ER did not reveal any IUP but levels did not reach higher than 1300 on 04/11/17. today hck level is only 193. 04/15/17 15:40 Red Blood Count 3.51, Mean Corpuscular Volume 93.4, Mean Corpuscular Hemoglobin 32.5, Mean Corpuscular Hemoglobin Concent 34.8, Mean Platelet Volume 9.3, Neutrophils (%) (Auto) 63.8, Lymphocytes (%) (Auto) 25.4, Monocytes (%) (Auto) 7.3, Eosinophils (%) (Auto) 2.6, Basophils (%) (Auto) 0.7, Neutrophils # (Auto) 3.91, Lymphocytes # (Auto) 1.56, Monocytes # (Auto) 0.45, Eosinophils # (Auto) 0.16, Basophils # (Auto) 0.04 Test 04/15/17 15:40 White Blood Count 6.13 K/uL (4.8-10.8) Red Blood Count 3.51 M/uL (4.2-5.4) Hemoglobin 11.4 g/dL (12.0-16.0) Hematocrit 32.8 % (37-47) Mean Corpuscular Volume 93.4 fL (80-100) Mean Corpuscular Hemoglobin 32.5 pg (25-34) Mean Corpuscular Hemoglobin Concent 34.8 g/dl (32-36) Platelet Count 240 K/uL (130-400) Mean Platelet Volume 9.3 fL (7.4-10.4) Neutrophils (%) (Auto) 63.8 % Lymphocytes (%) (Auto) 25.4 % Monocytes (%) (Auto) 7.3 % Eosinophils (%) (Auto) 2.6 % Basophils (%) (Auto) 0.7 % Neutrophils # (Auto) 3.91 K/uL (1.4-6.5) Lymphocytes # (Auto) 1.56 K/uL (1.2-3.4) Monocytes # (Auto) 0.45 K/uL (0.11-0.59) Eosinophils # (Auto) 0.16 K/uL (0-0.5) Basophils # (Auto) 0.04 K/uL (0-0.2) RDW Standard Deviation 42.8 fL (36.4-46.3) RDW Coefficient of Variation 12.7 % (11.5-14.5) Immature Granulocyte % (Auto) 0.2 % Immature Granulocyte # (Auto) 0.01 K/uL (0.00-0.02) Anion Gap 8.0 mmol/L (3-11) Est Creatinine Clear Calc Drug Dose 108.5 ml/min Estimated GFR () 140.6 Estimated GFR (Non- 121.3 BUN/Creatinine Ratio 10.8 (10-20) Calcium Level 8.8 mg/dl (8.5-10.1) Total Bilirubin 0.4 mg/dl (0.2-1) Aspartate Amino Transf (AST/SGOT) 17 U/L (15-37) Alanine Aminotransferase (ALT/SGPT) 22 U/L (12-78) Alkaline Phosphatase 68 U/L (45-117) Total Protein 7.6 gm/dl (6.4-8.2) Albumin 3.8 gm/dl (3.4-5.0) Globulin 3.8 gm/dl (2.5-4.0) Albumin/Globulin Ratio 1.0 (0.9-2) Human Chorionic Gonadotropin, Quant 193 mIU/mL Past Medical/Surgical History Medical Problems: (1) Adnexal mass Status: Acute (2) Elevated serum hCG Status: Acute (3) GERD (gastroesophageal reflux disease) Status: Chronic (4) Hypokalemia Status: Acute (5) Pelvic pain affecting in first trimester, antepartum Status: Acute (6) Tachycardia Status: Chronic Social History Smoking Status: Never Smoker Drug Use: none Marital Status: Housing Status: lives with family Occupation Status: employed Allergies Coded Allergies: No Known Allergies (Unverified , NONE, 06/06/08) Physical Exam Date Time Temp Pulse Resp B/P (MAP) Pulse Ox O2 Delivery O2 Flow Rate FiO2 04/15/17 15:16 36.9 102 20 112/79 99 Room Air General Appearance: no apparent distress Abdomen/GI: non tender, soft, no organomegaly, no pulsatile mass Neurologic/Psych: umbrella finisher II-XII nml as tested, alert, normal mood/affect, oriented x 3 Skin: normal color Laboratory Results Last 24 Hours Test 04/15/17 15:40 White Blood Count 6.13 K/uL Red Blood Count 3.51 M/uL Hemoglobin 11.4 g/dL Hematocrit 32.8 % Mean Corpuscular Volume 93.4 fL Mean Corpuscular Hemoglobin 32.5 pg Mean Corpuscular Hemoglobin Concent 34.8 g/dl Platelet Count 240 K/uL Mean Platelet Volume 9.3 fL Neutrophils (%) (Auto) 63.8 % Lymphocytes (%) (Auto) 25.4 % Monocytes (%) (Auto) 7.3 % Eosinophils (%) (Auto) 2.6 % Basophils (%) (Auto) 0.7 % Neutrophils # (Auto) 3.91 K/uL Lymphocytes # (Auto) 1.56 K/uL Monocytes # (Auto) 0.45 K/uL Eosinophils # (Auto) 0.16 K/uL Basophils # (Auto) 0.04 K/uL RDW Standard Deviation 42.8 fL RDW Coefficient of Variation 12.7 % Immature Granulocyte % (Auto) 0.2 % Immature Granulocyte # (Auto) 0.01 K/uL Sodium Level 140 mmol/L Potassium Level 3.0 mmol/L Chloride Level 105 mmol/L Carbon Dioxide Level 27 mmol/L Anion Gap 8.0 mmol/L Blood Urea Nitrogen 6 mg/dl Creatinine 0.59 mg/dl Est Creatinine Clear Calc Drug Dose 108.5 ml/min Estimated GFR () 140.6 Estimated GFR (Non- 121.3 BUN/Creatinine Ratio 10.8 Random Glucose 89 mg/dl Calcium Level 8.8 mg/dl Total Bilirubin 0.4 mg/dl Aspartate Amino Transf (AST/SGOT) 17 U/L Alanine Aminotransferase (ALT/SGPT) 22 U/L Alkaline Phosphatase 68 U/L Total Protein 7.6 gm/dl Albumin 3.8 gm/dl Globulin 3.8 gm/dl Albumin/Globulin Ratio 1.0 Human Chorionic Gonadotropin, Quant 193 mIU/mL Assessment & Plan probable left ovarian cyst vs overlying bowel missed most likely diagnosis doubt ectopic have given patient ectopic precautions to call if any sever pain or heavy vaginal bleeding follow up in office on Tuesday and to repeat hcg Tuesday Additional Copies To Chaitanya Moss M.D.
[2017-04-15] MEDS ORDERED: POTASSIUM CHLORIDE 20 MEQ TABCR PO STA (17:39)
[2017-04-15] MEDS ORDERED: POTASSIUM CHLORIDE 10 MEQ TABCR ONE (17:47)
[2017-04-15 17:52] VITALS: BP 103/71; PULSE 87; TEMP 36.9; O2SAT 100
[2017-04-15] MEDS ORDERED: PRENTAB26 PO (19:59)
== END 2017-04-15 17:52 | disposition home or self-care (01) ==
LOC: C.EDB 15:11
DX: R19.09 Other intra-abdominal and pelvic swelling, mass and lump (principal); O02.81 Inappropriate change in quantitative human chorionic gonadotropin (hCG) in early pregnancy; E87.6 Hypokalemia; K21.9 Gastro-esophageal reflux disease without esophagitis

== ENCOUNTER → 2017-04-28 | Day surgery (SDC) | payer OTHER ==
[~2017-04-28] VITALS: Ht 165.1 cm; Wt 48.4 kg
[~2017-04-28] MED LIST changes: +ATROPINE SULFATE 0.1 MG/ML 5ML SYR IV PRN; +BUPIVACAINE 0.5 % 5 MG/1 ML MPF 30ML VIAL ONE; +DEXAMETHASONE SOD INJ 4 MG/ML VIAL ONE; -DICY10CA55 PO; +EpHEDrine SULFATE INJ 50 MG/ML AMP IV PRN; +FENTANYL CITRATE INJ 50 MCG/1 ML 2 ML VIAL IV PRN; +FENTANYL CITRATE INJ 50 MCG/1 ML 2 ML VIAL ONE; +GLYCOPYRROLATE INJ 0.2 MG/ML VIAL ONE; +IBUPROFEN 600 MG TAB PO PRN; +KETOROLAC TROMETHAMINE 15 MG/ML VIAL IV. PRN; +KETOROLAC TROMETHAMINE 30 MG/ML VIAL ONE; +LACTATED RINGER'S 1000ML 1,000 ML IV SCH; +LIDOCAINE HCL 2% 2 ML VIAL (20MG/ML) ONE; +NEOSTIGMINE METHYLSULFATE 5 MG/5 ML SYR ONE; -OMEP40CA41 PO; +ONDANSETRON INJ 2 MG/ML 2 ML VIAL IV PRN; +ONDANSETRON INJ 2 MG/ML 2 ML VIAL ONE; +OXYC-57 PO; +OXYCODONE/ACETAMINOPHEN 5-325 TAB PO PRN; +PRENTAB26 PO; +PROMETHAZINE HCL INJ 6.25 MG in SODIUM CHLORIDE 0.9% 50ML 50 ML IV PRN; +PROPOFOL IV EMULSION 10 MG/ML 20 ML VIAL IV ONE; +ROCURONIUM BROMIDE 10 MG/ML 5 ML VIAL IV ONE; +SODIUM CHLORIDE 0.9% 1000ML 1,000 ML IV SCH
[2017-04-28 07:05] VITALS: BP 108/81; PULSE 78; TEMP 36.7; O2SAT 100; Ht 165.1 cm; Wt 48.4 kg
[2017-04-28 07:25] LABS: BASO % 0.4 %; BASO ABS # 0.02 K/uL (0-0.2); EOS % 2.2 %; EOS ABS # 0.11 K/uL (0-0.5); HEMATOCRIT 35.3 % (37-47); HEMOGLOBIN 11.9 g/dL (12.0-16.0); IG# 0.01 K/uL (0.00-0.02); LYMPH % 30.1 %; LYMPH ABS # 1.49 K/uL (1.2-3.4); MEAN CELL VOLUME 94.9 fL (80-100); MEAN PLATELET VOLUME 8.7 fL (7.4-10.4); MONO % 6.5 %; MONO ABS # 0.32 K/uL (0.11-0.59); NEUT % 60.6 %; PLATELET COUNT 212 K/uL (130-400); RED CELL DISTRIBUTION WIDTH CV 12.9 % (11.5-14.5); RED CELL DISTRIBUTION WIDTH SD 44.3 fL (36.4-46.3); WHITE BLOOD COUNT 4.95 K/uL (4.8-10.8)
[2017-04-28 07:28] LABS: MEAN CORPUSCULAR HGB CONC 33.7 g/dl (32-36)
--- NOTE | 2017-04-28 07:36 | History & Physical Bridge Note ---
H&P Re-Evaluation Bridge Note: I have examined the patient, reviewed the History & Physical and in the interval since the performance of the History & Physical I have noted the following changes of clinical significance: No changes noted
[2017-04-28] MEDS: CEFAZOLIN 2000MG IV PUSH 15 ML IV SCH ×2 (08:11→09:08)
--- NOTE | 2017-04-28 09:40 | Discharge Instructions ---
Discharge Instructions Date of Service Apr 28, 2017. Visit Reason for Visit: Possible Ruptured Left Ectopic Discharge Discharge Diagnosis / Problem: Laparoscopic LSO, lysis of adhesions Discharge Goals Goal(s): Decrease discomfort, Improve function Activity Recommendations Activity Limitations: per Instructions/Follow-up section Anesthesia . Post Anesthesia Instructions: If you have had General Anesthesia or IV Sedation: * Do not drive today. * Resume driving when surgeon permits. * Do not make important decisions or sign legal documents today. * Call surgeon for: 1. Temperature elevations greater than 101 degrees F. 2. Uncontrollable pain. 3. Excessive bleeding. 4. Persistent nausea and vomiting. 5. Medication intolerance (nausea, vomiting or rash). * For nausea and vomiting use only clear liquids such as: tea, soda, bouillon until nausea subsides, then gradually increase diet as tolerated. * If you have any concerns or questions, call your surgeon's office. If physician is unavailable and it is an emergency, call 911 or go to the nearest emergency room. . Instructions / Follow-Up Instructions / Follow-Up ACTIVITY RECOMMENDATIONS: * Rest the first 2-3 days. You should be back to your normal activity levels by day 3. * No heavy lifting for 2 weeks. * No intercourse, tampons or douching for 1-2 weeks. * You may shower the next day. * Do not drive anytime that you are taking narcotic pain medicines. RETURN TO SCHOOL/WORK: * May return to school or work after 2-3 days. DIET: Nausea may occur in the immediate post-operative period. If so, take clear liquids such as tea, bouillon, apple juice until all nausea has subsided, then resume usual diet. MEDICATIONS: Resume previous medications unless instructed otherwise by your surgeon. Ibuprofen 200mg 2-3 tablets every 4-6 hours as needed -- OR -- Aleve 2 tablets every 8-12 hours as needed for post-operative discomfort Medications are over the counter. Tylenol may be used if above medications are contraindicated or not preferred. Medication should be taken with food or milk. Do not take on an empty stomach. SPECIAL CARE INSTRUCTIONS: * Check temperature twice daily for one week. report any elevation over 101 degrees. * You may experience some vagina spotting and/or bleeding. This is normal for 1 -2 weeks and should not be heavier than a normal period. If it is unusual in amount, call your physician. * Post-operative discomfort may consist of a sore throat, a "bloated" feeling and pain in the shoulders. these are normal symptoms, which usually only last for 2-3 days. * Remove band-aids tomorrow and shower. There is no need to replace band-aids unless there is drainage or discomfort. FOLLOW UP VISIT: Call your doctor's office for a post-operative 2 week visit if not already scheduled. Diet Recommendations Recommended Home Diet: no limitations, resume previous diet Procedures Procedures Performed: Laparoscopic Left Salpingectomy-Oophorectomy, Lysis of Adhesions Pending Studies Studies pending at discharge: no Medical Emergencies . Who to Call and When: Medical Emergencies: If at any time you feel your situation is an emergency, please call 911 immediately. . Non-Emergent Contact Non-Emergency issues call your: Primary Care Provider, Visitor Services Assistant . . "Provider Documentation" section prepared by Alan Cabrera. . [place] Drug Monitoring Program Search Results: patient reviewed within database, no issues identified
--- NOTE | 2017-04-28 09:44 | [facility] Post Operative Brief Note ---
Immediate Operative Summary Operative Date Apr 28, 2017. Pre-Operative Diagnosis Possible Ruptured Left Sided Ectopic , Pelvic Pain Post-Operative Diagnosis Ruptured Left Sided Ectopic , abdominal adhesions Procedure(s) Performed Laparoscopic Left Salpingectomy-Oophorectomy, Lysis of Adhesions Surgeon Mental Retardation Nurse Surgeon(s) None Estimated Blood Loss 10ml Findings Consistent with Post-Op Diagnosis Fluids (cc crystalloids) 900 Specimens A. Left Fallopian Tube And Ovary Drains None Ahmadi to gravity Anesthesia Type General Complication(s) none Disposition Accompanied Pt To Recover: no Disposition: Recovery Room / PACU
--- NOTE | 2017-04-28 10:23 | OPERATIVE REPORT ---
DATE OF OPERATION: 04/28/2017 PREOPERATIVE DIAGNOSES: 1. Pelvic pain. 2. Possible ruptured left-sided ectopic . POSTOPERATIVE DIAGNOSES: Ruptured left-sided ectopic and abdominal and pelvic adhesions. OPERATIVE PROCEDURE: Laparoscopic left salpingo-oophorectomy and lysis of adhesions. SURGEON: Dr. Alan Cabrera. STITCH BONDING MACHINE OPERATOR: None. ANESTHESIA: General. ESTIMATED BLOOD LOSS: 10 mL. IV FLUIDS: 900 mL crystalloids. URINE OUTPUT: 500 mL clear yellow urine. SPECIMENS: Left fallopian tube and ovary. DRAINS: Ahmadi to gravity. COMPLICATIONS: None. DISPOSITION: Recovery room. OPERATIVE FINDINGS: Upon laparoscopic exam, there was blood in the pelvis. The left adnexa was tightly adhered to the side wall. Once the adnexa was freed, it was noted that there was clotted blood and the left tube looked ruptured. The left ovary was tightly adhered to the tube and could not clearly be identified. The left adnexa was removed laparoscopically and was removed from the abdomen. Once the specimen was removed, attention to the left adnexa was noted to be hemostatic. No other pathology was seen on that side. The sigmoid colon was tightly adhered to the wall, which was freed up carefully. There was also right-sided bowel adhesions to the anterior abdominal wall. These adhesions were carefully cauterized and lysed. The bowels were placed back within its normal anatomic position. There were some endometriosis noted in the posterior cul-de-sac and the right ovarian fossa. The right ovary and tube were essentially grossly normal. The patient tolerated the procedure well and was sent to recovery with stable vital signs. OPERATIVE PROCEDURE IN DETAIL: The patient was taken to the operating room, where general anesthesia was administered. Once anesthesia was found to be adequate, the patient was prepped and draped in a manner appropriate for the procedure. A weighted speculum was then placed into the vagina and the anterior lip of the cervix was grasped with a single toothed tenaculum. A LocaModalka uterine manipulator was then placed within the uterus in an anteverted fashion. A sterile Ahmadi catheter was then placed within the bladder and remained indwelling throughout the entire procedure. The patient was then ready for the laparoscopic portion of the procedure. The weighted speculum was removed from the vagina. Attention was directed towards the abdomen, where 0.5% Marcaine was injected below the umbilicus. An 11-mm skin incision was made below the umbilicus in a horizontal fashion. A Veress needle was then placed within the abdomen. Normal saline was injected with no fecal content aspirated. Pneumoperitoneum was then created. The Veress needle was then removed and an 11-mm trocar was then placed within the abdomen under direct laparoscopic visualization. The patient was then placed in steep Trendelenburg position. The bowel was displaced superiorly away from the pelvis. It was noted that there was blood in the pelvis. A second 5-mm skin incision was made 2 fingerbreadths above the pubic symphysis at midline in a horizontal fashion. A 5-mm trocar was then placed within the abdomen under direct laparoscopic visualization. A third 5-mm skin incision was made on the right side of the abdomen and a third 5-mm trocar was placed within the abdomen under direct laparoscopic visualization. Once all 3 trocars were placed, a thorough examination of the abdomen and pelvis was then performed. Attention was directed towards the left adnexa, which was noted to be tightly adhered to the ipsilateral sidewall. The fallopian tube was grasped and the left adnexa was carefully freed from the wall. The left tube and ovary were unable to be due to the damage to the left adnexa. There were clots and adhesions. Attention was directed towards the left infundibulopelvic ligament, which was followed out to the side wall. It was cauterized and transected and continued inferiorly through the rest of the broad ligament, removing the left adnexa. Once we were at the level of the uteroovarian ligament, the entire specimen was removed and placed within inside of an EndoCatch bag. The specimen was then removed and sent to pathology. The pelvis was then copiously irrigated with warm saline solution. Excellent hemostasis was noted at the removal of the left adnexa. The sigmoid colon was adhered to the ipsilateral side wall as well. These adhesions were carefully cauterized and lysed. The sigmoid was then placed back within its normal anatomic position. Attention was directed towards the right-sided abdominal adhesions. The bowel was stuck to the anterior wall. These adhesions were carefully cauterized and lysed with the LigaSure. The bowel was then pushed back to its normal anatomic position. Excellent hemostasis was noted. A thorough examination of the abdomen and pelvis was performed once again and was irrigated with saline solution. All fluids were aspirated. Excellent hemostasis was noted throughout the entire abdomen and pelvis. At this point, the procedure was found to be complete. All instruments were removed from the trocars. As much CO2 gas was allowed to percolate through the open cannulas. The cannulas were then removed. The fascia of the umbilical incision was reapproximated with 0 Vicryl suture in a [id number] interrupted fashion. All 3 skin incisions were with 4-0 Monocryl in a subcuticular fashion. Excellent hemostasis was noted at all 3 incisions. The LocaModalka uterine manipulator was then removed from the vagina along with the Ahmadi catheter. All sponge and instrument counts were found to be correct x2. The patient tolerated the procedure well and was sent to recovery with stable vital signs. I attest to the content of the Intraoperative Record and any orders documented therein. Any exception s are noted below.
--- NOTE | 2017-04-28 10:23 | Anesthesiology Progress Note ---
Anesthesia Post Op Note Date & Time Apr 28, 2017 at 10:23 Vital Signs Pain Intensity: 2 Vital Signs Past 12 Hours Date Time Temp Pulse Resp B/P (MAP) Pulse Ox O2 Delivery O2 Flow Rate FiO2 04/28/17 10:20 36.4 66 18 106/71 97 Room Air 04/28/17 10:10 61 18 106/75 100 Nasal Cannula 2 04/28/17 10:00 69 18 104/76 100 Nasal Cannula 3 04/28/17 09:50 60 18 104/68 100 Nasal Cannula 3 04/28/17 09:44 36.0 79 16 120/73 100 Nasal Cannula 3 04/28/17 07:05 36.7 78 16 108/81 (90) 100 Room Air Notes Mental Status: alert / awake / arousable, participated in evaluation Pt Amnestic to Procedure: Yes Nausea / Vomiting: adequately controlled Pain: adequately controlled Airway Patency, RR, SpO2: stable & adequate BP & HR: stable & adequate Hydration State: stable & adequate Anesthetic Complications: no major complications apparent
[2017-04-28 10:30] VITALS: BP 100/65; PULSE 67; TEMP 37.2; O2SAT 98
[2017-04-28 11:00] VITALS: BP 102/60; PULSE 78; O2SAT 98
[2017-04-28 11:25] VITALS: BP 99/58; PULSE 71; TEMP 36.5; O2SAT 97
[2017-04-28 12:02] VITALS: BP 102/55; PULSE 70; TEMP 36.5; O2SAT 98
== END | disposition home or self-care (01) ==
LOC: C.OR 06:26
PROVIDERS: ATTEND Obstetrics & Gynecology
DX: O00.102 Left tubal pregnancy without intrauterine pregnancy (principal); N80.2 Endometriosis of fallopian tube; Z87.442 Personal history of urinary calculi; Z83.3 Family history of diabetes mellitus; Z82.49 Family history of ischemic heart disease and other diseases of the circulatory system; Z82.0 Family history of epilepsy and other diseases of the nervous system